=== PATIENT | female | born 1950 | race Hispanic/Latino ===

== ENCOUNTER → 2023-08-10 | Outpatient (CLI) | payer OTHER | END | disposition home or self-care (01) | LOC: RAH 08:38 | PROVIDERS: ATTEND Internal Medicine | DX: R22.2 Localized swelling, mass and lump, trunk (principal) | CPT/HCPCS: 76705 ==

== ENCOUNTER → 2023-11-08 | Outpatient (CLI) | payer OTHER | END | disposition home or self-care (01) | LOC: RAH 08:11 | PROVIDERS: ATTEND Internal Medicine | DX: R10.32 Left lower quadrant pain (principal); R10.2 Pelvic and perineal pain | CPT/HCPCS: 76856 ==